=== PATIENT | female | born 1955 | race Caucasian/White ===

== ENCOUNTER → 2016-10-21 | Outpatient (CLI) | payer BC ==
[~2016-10-21] VITALS: Ht 170.2 cm; Wt 52.2 kg
[~2016-10-21] MED LIST: ALEVE220 MG PO; B-COMPLEX-VITA1 EACH PO; CIPRO500 MG PO; CITALOPRAM HBR40 MG PO; CYMBALTA30 MG PO; DAILY VALUE1 EACH PO; DONEPEZIL HCL5 MG PO; LEVO-T50 MCG PO; LORAZEPAM0.5 MG PO; PERCOCET 5/31 TABLET PO; PROTONIX40 MG PO; TRAZODONE HCL50 MG PO; VENTOLIN HFA18 GM IH; VITAMIN E200 UNI2 PO
== END | disposition home or self-care (01) ==
LOC: AMB 07:53
DX: K25.5 Chronic or unspecified gastric ulcer with perforation (principal); K22.70 Barrett's esophagus without dysplasia; B37.81 Candidal esophagitis; K29.70 Gastritis, unspecified, without bleeding; R10.9 Unspecified abdominal pain; G89.29 Other chronic pain; F41.8 Other specified anxiety disorders; E03.9 Hypothyroidism, unspecified; D47.2 Monoclonal gammopathy; D75.89 Other specified diseases of blood and blood-forming organs; R74.0 Nonspecific elevation of levels of transaminase and lactic acid dehydrogenase [LDH]; Z68.1 Body mass index [BMI] 19.9 or less, adult; F17.200 Nicotine dependence, unspecified, uncomplicated; Z88.8 Allergy status to other drugs, medicaments and biological substances
CPT/HCPCS: 88108; 88305; 88312; 88342 TC; J2250; J3010